=== PATIENT | male | born 1955 | race Caucasian/White ===

== ENCOUNTER 2017-01-18 13:03 | Emergency (ER) | payer OTHER ==
[~2017-01-18] VITALS: Ht 177.8 cm; Wt 84.0 kg
[2017-01-18 13:07] VITALS: TEMP 36.8; Ht 177.8 cm; Wt 84.0 kg
[2017-01-18] MEDS ORDERED: ASPI81TA28 PO (13:34)
[2017-01-18] MEDS ORDERED: FLUT0.15 NAE (13:34)
[2017-01-18] MEDS ORDERED: DiphenhydrAMINE HCL 50 MG/ML VIAL IV STA (13:59)
[2017-01-18] MEDS ORDERED: ONDANSETRON INJ 2 MG/ML 2 ML VIAL IV STA (13:59)
[2017-01-18] MEDS ORDERED: SODIUM CHLORIDE 0.9% 1000ML 1,000 ML IV STA ×2 (13:59→14:05)
--- NOTE | 2017-01-18 13:59 | EMERGENCY ROOM VISIT NOTE ---
History Report prepared by Jose: Dorian James Under the Supervision of: Dr. Zach Justice M.D. First contact with patient: 13:17 Chief Complaint: DIZZY Stated Complaint: DIZZY/LIGHTHEADED/NAUSEA Nursing Triage Summary: pt arrives via ALS per ALS pt was outside all morning, since 0800 he reports dizziness all of a sudden with nausea "It felt like it started right around the back of my head into my neck." no photophobia no CP or SOB History of Present Illness The patient is a 61 year old male who presents to the Emergency Room via ALS with complaints of persistent dizziness that started around 2 and a half hours ago. He says that he was outside working, loading an object onto a truck. The patient was feeling fine at that time, but he went back into the truck and started driving. When he got to a stop sign, he says that he suddenly got really dizzy, with nausea and sweating. The patient's adds that the patient has had episodes of vomiting as well. The patient notes that when the dizziness started, he was probably turning his head. He says that currently, he is dizzy, which is exacerbated by turning his head. The patient says that the room is not spinning. He adds that he has had a decreased urinary frequency recently. He says that he has chronic nasal congestion due to allergies. He denies any shortness of breath, chest pain, neck pain, abdominal pain, fevers, chills, cough, sore throat, or diarrhea. He notes that he has no chronic medical problems or history of strokes or TIA. He does take Aspirin 81 mg daily. Source of History: patient, spouse/significant other Onset: 2 and a half hours ago Position: other (global - dizziness) Timing: other (persistent) Modifying Factors (Worsening): movement Associated Symptoms: + diaphoresis, + nausea, + vomiting, + urinary symptoms (decreased urinary frequency), No fevers, No chills, No sorethroat, No cough, No neck pain, No chest pain, No SOB, No abdominal pain, No diarrhea Note: No other associated symptoms noted. Review of Systems See HPI for pertinent positives and negatives. A total of ten systems were reviewed and were otherwise negative. Past Medical & Surgical Medical Problems: (1) Environmental allergies Family History Cancer FH: heart disease Hypertension Social History Smoking Status: Never Smoker Smokeless Tobacco Use: No Alcohol Use: none Marital Status: Housing Status: lives with family Occupation Status: employed Current/Historical Medications Scheduled Aspirin (Aspirin Ec), 81 MG PO DAILY Fluticasone Propionate (Nasal) (Flonase Allergy Relief), 2 SPRAYS JASMIN DAILY Scheduled PRN Meclizine Hcl (Meclizine Hcl), 25 MG PO TID PRN for Dizziness Allergies Coded Allergies: No Known Allergies (Unverified , 01/18/17) Physical Exam Vital Signs Date Time Temp Pulse Resp B/P (MAP) Pulse Ox O2 Delivery O2 Flow Rate FiO2 01/18/17 18:27 81 18 127/85 97 Room Air 01/18/17 16:40 62 18 134/76 99 Room Air 01/18/17 14:55 68 16 137/72 99 Room Air 01/18/17 13:07 36.8 72 16 117/77 99 Room Air Physical Exam GENERAL: Awake, alert, mildly uncomfortable appearing, in no distress HENT: Normocephalic, atraumatic. Oropharynx unremarkable. Dry mucous membranes. EYES: Normal conjunctiva. Sclera non-icteric. NECK: Supple. No nuchal rigidity. FROM. No JVD. RESPIRATORY: Clear to auscultation. CARDIAC: Regular rate, normal rhythm. Extremities warm and well perfused. Pulses equal. ABDOMEN: Soft, non-distended. No tenderness to palpation. No rebound or guarding. No masses. RECTAL: Deferred. MUSCULOSKELETAL: Chest examination reveals no tenderness. The back is symmetrical on inspection without obvious abnormality. There is no CVA tenderness to palpation. No joint edema. LOWER EXTREMITIES: Calves are equal size bilaterally and non-tender. No edema. No discoloration. NEURO: Normal sensorium. Unilateral nystagmus to right only, otherwise cranial nerves 2-12 intact, cerebellar intact. Negative Romberg, does appear to have an unsteady gait. No ataxia but very cautious with ambulation. SKIN: No rash or jaundice noted. Medical Decision & Procedures ER Provider Diagnostic Interpretation: Radiology results as stated below per my review and radiologist interpretation: CT SCAN OF THE BRAIN WITHOUT IV CONTRAST CLINICAL HISTORY: Headache. Vertigo. Nausea. COMPARISON STUDY: No priors. TECHNIQUE: Unenhanced axial CT scan of the brain is performed from the vertex to the skull base. Automated dose control exposure was utilized. A dose lowering technique was utilized adhering to the principles of ALARA. CT DOSE: 690.05 mGycm FINDINGS: Brain parenchyma: The brain parenchyma is normal in appearance. There is no hemorrhage, mass effect, or evidence of acute territorial ischemia by CT criteria. Chance-white matter is preserved. No extra-axial fluid collection is seen. Ventricles, sulci, cisterns: Normal in configuration. Intracranial vasculature: There is atherosclerotic calcification of the cavernous carotid and vertebral arteries. Calvarium: Unremarkable. Sinuses and mastoids: The visualized paranasal sinuses are clear. The mastoid air cells are well pneumatized. Orbits: The bony orbits are grossly intact. IMPRESSION: There is no hemorrhage, mass effect, or evidence of acute territorial ischemia by CT criteria. Electronically signed by: Elias Navarro M.D. 01/18/2017 2:41 PM Dictated Date/Time: 01/18/2017 2:31 PM SINGLE VIEW CHEST CLINICAL HISTORY: Dyspnea. FINDINGS: An AP, portable, upright chest radiograph is obtained. No prior studies are available for comparison at the time of dictation. The examination is degraded by portable technique and patient rotation. The cardiomediastinal silhouette is unremarkable. There is mild elevation of right hemidiaphragm. Minimal bibasilar atelectasis is observed. There is no airspace consolidation or large pleural effusion. No pneumothorax is seen. The bony thorax is grossly intact. IMPRESSION: No acute cardiopulmonary abnormality. Electronically signed by: Elias Navarro M.D. 01/18/2017 2:24 PM Dictated Date/Time: 01/18/2017 2:23 PM MRI OF THE BRAIN WITHOUT CONTRAST CLINICAL HISTORY: Severe vertigo COMPARISON STUDY: CT scan the head dated 01/18/2017 FINDINGS: Sagittal T1, axial diffusion, proton density and T2 weighted axial, coronal FLAIR, and axial T1-weighted images were acquired. No intra or extra-axial mass lesions are visualized Axial diffusion-weighted images reveal no evidence of acute or subacute infarction. There is no evidence of ventricular dilatation. Proton density T2-weighted and FLAIR images reveal a 4 mm focus paralleling CSF intensity in the left insular region, likely representing a dilated CSF space. There are no abnormal flow voids. IMPRESSION: 1. 4 mm focus of increased T2 signal within the left insular region, likely representing an incidental dilated CSF space. Otherwise normal MRI of the brain for age. 2. No evidence of intracranial mass 3. No evidence of acute or subacute infarction Electronically signed by: Jesus Vazquez M.D. 01/18/2017 6:19 PM Dictated Date/Time: 01/18/2017 6:16 PM ORBIT RADIOGRAPHS 3 VIEWS HISTORY: pre-MRI screening. COMPARISON: None. FINDINGS: There are no radiopaque foreign bodies identified within the orbits. IMPRESSION: No radiopaque foreign bodies identified within the orbits. Electronically signed by: Galo Simmons M.D. 01/18/2017 5:32 PM Dictated Date/Time: 01/18/2017 5:32 PM Laboratory Results 01/18/17 13:18 Red Blood Count 4.96, Mean Corpuscular Volume 88.9, Mean Corpuscular Hemoglobin 30.6, Mean Corpuscular Hemoglobin Concent 34.5, Mean Platelet Volume 9.3, Neutrophils (%) (Auto) 75.5, Lymphocytes (%) (Auto) 16.2, Monocytes (%) (Auto) 6.1, Eosinophils (%) (Auto) 1.7, Basophils (%) (Auto) 0.2, Neutrophils # (Auto) 8.89, Lymphocytes # (Auto) 1.91, Monocytes # (Auto) 0.72, Eosinophils # (Auto) 0.20, Basophils # (Auto) 0.02 01/18/17 13:18 Test 01/18/17 13:18 01/18/17 18:22 White Blood Count 11.78 K/uL (4.8-10.8) Red Blood Count 4.96 M/uL (4.7-6.1) Hemoglobin 15.2 g/dL (14.0-18.0) Hematocrit 44.1 % (42-52) Mean Corpuscular Volume 88.9 fL (80-100) Mean Corpuscular Hemoglobin 30.6 pg (25-34) Mean Corpuscular Hemoglobin Concent 34.5 g/dl (32-36) Platelet Count 289 K/uL (130-400) Mean Platelet Volume 9.3 fL (7.4-10.4) Neutrophils (%) (Auto) 75.5 % Lymphocytes (%) (Auto) 16.2 % Monocytes (%) (Auto) 6.1 % Eosinophils (%) (Auto) 1.7 % Basophils (%) (Auto) 0.2 % Neutrophils # (Auto) 8.89 K/uL (1.4-6.5) Lymphocytes # (Auto) 1.91 K/uL (1.2-3.4) Monocytes # (Auto) 0.72 K/uL (0.11-0.59) Eosinophils # (Auto) 0.20 K/uL (0-0.5) Basophils # (Auto) 0.02 K/uL (0-0.2) RDW Standard Deviation 42.9 fL (36.4-46.3) RDW Coefficient of Variation 13.2 % (11.5-14.5) Immature Granulocyte % (Auto) 0.3 % Immature Granulocyte # (Auto) 0.04 K/uL (0.00-0.02) Anion Gap 8.0 mmol/L (3-11) Est Creatinine Clear Calc Drug Dose 67.6 ml/min Estimated GFR () 75.7 Estimated GFR (Non- 65.3 BUN/Creatinine Ratio 14.1 (10-20) Calcium Level 8.9 mg/dl (8.5-10.1) Phosphorus Level 1.8 mg/dl (2.5-4.9) Magnesium Level 2.0 mg/dl (1.8-2.4) Troponin I < 0.015 ng/ml (0-0.045) Urine Color YELLOW Urine Appearance CLEAR (CLEAR) Urine pH 6.0 (4.5-7.5) Urine Specific [place] 1.008 (1.000-1.030) Urine Protein NEG (NEG) Urine Glucose (UA) NEG (NEG) Urine Ketones NEG (NEG) Urine Occult Blood NEG (NEG) Urine Nitrite NEG (NEG) Urine Bilirubin NEG (NEG) Urine Urobilinogen NEG (NEG) Urine Leukocyte Esterase NEG (NEG) Laboratory results reviewed by me Medications Administered Medications (Trade) Dose Ordered Sig/Que Route Start Time Stop Time Status Last Admin Dose Admin Sodium Chloride 1,000 ml @ 999 mls/hr Q1H1M STAT IV 01/18/17 13:59 01/18/17 14:59 DC 01/18/17 13:59 999 MLS/HR Ondansetron HCl (Zofran Inj) 4 mg NOW STAT IV 01/18/17 13:59 01/18/17 14:06 DC 01/18/17 13:59 4 MG Diphenhydramine HCl (Benadryl Inj) 25 mg NOW STAT IV 01/18/17 13:59 01/18/17 14:06 DC 01/18/17 13:59 25 MG Sodium Chloride 1,000 ml @ 999 mls/hr Q1H1M STAT IV 01/18/17 14:05 01/18/17 15:05 DC 01/18/17 14:05 999 MLS/HR ECG Indication: nausea Rate (beats per minute): 68 Rhythm: normal sinus Findings: 1st degree AV block, other (incomplete RBBB) Comparison ECG Date: no prior available ED Course 1349: The patient was evaluated in room B7. A complete history and physical exam was performed. 1359: Ordered Benadryl Inj 25 mg IV, Zofran Inj 4 mg IV, NSS 1000 ml @ 999 mls/ hr IV. 1405: Ordered NSS 1000 ml @ 999 mls/hr IV. 1606: I reevaluated and updated the patient. 2010: I reevaluated the patient and he is resting comfortably. Discussed results and discharge instructions: he verbalized understanding and agreement. The patient is ready for discharge. Medical Decision I reviewed the patient's past medical history, medications, and the nursing notes as described above. Differential diagnosis: Etiologies such as benign positional vertigo, dehydration, hypovolemia, anemia, tumor, infection, hypoglycemia, electrolyte abnormalities, cardiac sources, intracerebral event, toxicologic, neurologic, as well as others were entertained. The patient is a 61-year-old gentleman comes to the emergency department with acute onset of vertigo per history of present illness. Arrival the patient appears uncomfortable but in no acute distress. Exam the patient is clinically dry, with unilateral nystagmus to the right worsening of symptoms with head movements suggesting a likely peripheral etiology. Patient appears to have a mildly unsteady gait but no gross ataxia. Otherwise cerebellar function finger- nose intact. Neuro exam otherwise intact. Symptoms occur in the setting of seasonal allergies and nasal congestion. The patient's symptoms are most likely peripheral, considering the patient's age and no prior history of vertigo CAT scan was done which was negative. Patient much improved on reevaluation, with some residual unsteadiness so MRI was performed and was also negative for stroke. Incidental findings of left insular dilated CSF discussed with patient. However the patient's symptoms were not related to this region the patient has no difficulties with speech, likely benign finding. The patient 's symptoms continued to improve with IV fluid hydration and Benadryl. Otherwise the patient's EKG, chest x-ray, and lab results were unremarkable. The patient will follow up with his primary care doctor and was given a prescription for meclizine if symptoms return. Patient agreeable with plan and discharged per instructions. Medication Reconcilliation Current Medication List: was personally reviewed by me No medications on list. Blood Pressure Screening Patient's blood pressure: Normal blood pressure Impression Primary Impression: Vertigo Scribe Attestation The scribe's documentation has been prepared under my direction and personally reviewed by me in its entirety. I confirm that the note above accurately reflects all work, treatment, procedures, and medical decision making performed by me. Departure Information Dispostion Home / Self-Care Prescriptions Meclizine Hcl (MECLIZINE HCL) 25 Mg Tab 25 MG PO TID Y for Dizziness, #21 TAB Prov: Zach Justice M.D. 01/18/17 Patient Instructions Dizziness Vertigo Inner Ear, Dizziness Vertigo Manage Meds, ED Vertigo Unspecified, My [facility] Additional Instructions Please follow up with your primary care physician next week for reevaluation. Her phosphorus was slightly low, take a multivitamin recheck with your doctor. Otherwise, your exam, CAT scan, MRI, and lab results did not show signs of an emergent condition. Take meclizine as directed for vertigo symptoms. You were also mildly dehydrated, make sure to drink plenty of fluids. Return to the emergency department for worsening symptoms as described in the accompanying instructions. Your MRI did not show any signs of stroke but had the following findings which you should discuss with your primary care doctor. 1. 4 mm focus of increased T2 signal within the left insular region, likely representing an incidental dilated CSF space. Otherwise normal MRI of the brain for age. 2. No evidence of intracranial mass 3. No evidence of acute or subacute infarction
[2017-01-18 14:12] LABS: BASO % 0.2 %; BASO ABS # 0.02 K/uL (0-0.2); COMPLETE YES; EOS % 1.7 %; HEMATOCRIT 44.1 % (42-52); IG% 0.3 %; LYMPH % 16.2 %; LYMPH ABS # 1.91 K/uL (1.2-3.4); MEAN CELL VOLUME 88.9 fL (80-100); MEAN CORPUSCULAR HEMOGLOBIN 30.6 pg (25-34); MEAN CORPUSCULAR HGB CONC 34.5 g/dl (32-36); MEAN PLATELET VOLUME 9.3 fL (7.4-10.4); MONO % 6.1 %; NEUT % 75.5 %; PLATELET COUNT 289 K/uL (130-400); RED BLOOD COUNT 4.96 M/uL (4.7-6.1); WHITE BLOOD COUNT 11.78 K/uL (4.8-10.8)
[2017-01-18 14:20] LABS: BLOOD UREA NITROGEN 17 mg/dl (7-18); BUN/CREATININE RATIO 14.1 (10-20); CALCIUM 8.9 mg/dl (8.5-10.1); CARBON DIOXIDE 23 mmol/L (21-32); CHLORIDE 110 mmol/L (98-107); GLUCOSE 143 mg/dl (70-99); POTASSIUM 3.9 mmol/L (3.5-5.1); SODIUM 141 mmol/L (136-145)
[2017-01-18 14:25] LABS: PHOSPHORUS 1.8 mg/dl (2.5-4.9)
--- NOTE | 2017-01-18 14:25 | DIAGNOSTIC IMAGING REPORT ---
SINGLE VIEW CHEST CLINICAL HISTORY: Dyspnea. FINDINGS: An AP, portable, upright chest radiograph is obtained. No prior studies are available for comparison at the time of dictation. The examination is degraded by portable technique and patient rotation. The cardiomediastinal silhouette is unremarkable. There is mild elevation of right hemidiaphragm. Minimal bibasilar atelectasis is observed. There is no airspace consolidation or large pleural effusion. No pneumothorax is seen. The bony thorax is grossly intact. IMPRESSION: No acute cardiopulmonary abnormality. Electronically signed by: Elias Navarro M.D. 01/18/2017 2:24 PM Dictated Date/Time: 01/18/2017 2:23 PM
--- NOTE | 2017-01-18 14:43 | DIAGNOSTIC IMAGING REPORT ---
CT SCAN OF THE BRAIN WITHOUT IV CONTRAST CLINICAL HISTORY: Headache. Vertigo. Nausea. COMPARISON STUDY: No priors. TECHNIQUE: Unenhanced axial CT scan of the brain is performed from the vertex to the skull base. Automated dose control exposure was utilized. A dose lowering technique was utilized adhering to the principles of ALARA. CT DOSE: 690.05 mGycm FINDINGS: Brain parenchyma: The brain parenchyma is normal in appearance. There is no hemorrhage, mass effect, or evidence of acute territorial ischemia by CT criteria. Chance-white matter is preserved. No extra-axial fluid collection is seen. Ventricles, sulci, cisterns: Normal in configuration. Intracranial vasculature: There is atherosclerotic calcification of the cavernous carotid and vertebral arteries. Calvarium: Unremarkable. Sinuses and mastoids: The visualized paranasal sinuses are clear. The mastoid air cells are well pneumatized. Orbits: The bony orbits are grossly intact. IMPRESSION: There is no hemorrhage, mass effect, or evidence of acute territorial ischemia by CT criteria. Electronically signed by: Elias Navarro M.D. 01/18/2017 2:41 PM Dictated Date/Time: 01/18/2017 2:31 PM
--- NOTE | 2017-01-18 17:34 | DIAGNOSTIC IMAGING REPORT ---
ORBIT RADIOGRAPHS 3 VIEWS HISTORY: pre-MRI screening. COMPARISON: None. FINDINGS: There are no radiopaque foreign bodies identified within the orbits. IMPRESSION: No radiopaque foreign bodies identified within the orbits. Electronically signed by: Galo Simmons M.D. 01/18/2017 5:32 PM Dictated Date/Time: 01/18/2017 5:32 PM
--- NOTE | 2017-01-18 18:20 | DIAGNOSTIC IMAGING REPORT ---
MRI OF THE BRAIN WITHOUT CONTRAST CLINICAL HISTORY: Severe vertigo COMPARISON STUDY: CT scan the head dated 01/18/2017 FINDINGS: Sagittal T1, axial diffusion, proton density and T2 weighted axial, coronal FLAIR, and axial T1-weighted images were acquired. No intra or extra-axial mass lesions are visualized Axial diffusion-weighted images reveal no evidence of acute or subacute infarction. There is no evidence of ventricular dilatation. Proton density T2-weighted and FLAIR images reveal a 4 mm focus paralleling CSF intensity in the left insular region, likely representing a dilated CSF space. There are no abnormal flow voids. IMPRESSION: 1. 4 mm focus of increased T2 signal within the left insular region, likely representing an incidental dilated CSF space. Otherwise normal MRI of the brain for age. 2. No evidence of intracranial mass 3. No evidence of acute or subacute infarction Electronically signed by: Jesus Vazquez M.D. 01/18/2017 6:19 PM Dictated Date/Time: 01/18/2017 6:16 PM
[2017-01-18 18:27] VITALS: BP 127/85; PULSE 81; O2SAT 97
[2017-01-18 18:34] LABS: URINE APPEARANCE CLEAR (CLEAR); URINE BILIRUBIN NEG (NEG); URINE COLOR YELLOW; URINE NITRITE NEG (NEG); URINE SPECIFIC GRAVITY 1.008 (1.000-1.030); UROBILINOGEN NEG (NEG); ZZUR CULT IF INDIC CLEAN CATCH NO
[2017-01-18 18:37] LABS: MANUAL MICROSCOPIC REQUIRED? NO; REVIEW REQ? NO
[2017-01-18] MEDS ORDERED: MECL1TAB42 PO (20:06)
== END 2017-01-18 20:33 | disposition home or self-care (01) ==
LOC: EDBD 13:03 → C.EDB 13:06
DX: R42 Dizziness and giddiness (principal); I44.0 Atrioventricular block, first degree; Z79.82 Long term (current) use of aspirin; Z80.9 Family history of malignant neoplasm, unspecified; Z82.49 Family history of ischemic heart disease and other diseases of the circulatory system